=== PATIENT | male | born 1955 | race Caucasian/White ===

== ENCOUNTER 2018-12-07 10:16 | Outpatient (CLI) | payer OTHER ==
--- NOTE | 2018-12-07 10:47 | RAD ---
EXAM: XR Lumbar Spine 2 Or 3 View PROVIDED CLINICAL HISTORY: Low back pain COMPARISON: None available FINDINGS: There are 5 nonrib-bearing lumbar-type vertebral bodies. There is mild right convex scoliosis of the lumbar spine. Scattered degenerative changes are seen in the lumbar spine greatest at the lumbosacral junction. No vertebral body height loss is appreciated. No fracture or subluxation is seen. IMPRESSION: Mild scoliosis and degenerative changes in the lumbar spine. No fracture or subluxation is appreciate dNaomie
--- NOTE | 2018-12-07 10:51 | RAD ---
EXAM: XR Thoracic Spine 3 V STANDARD PROVIDED CLINICAL HISTORY: Back pain COMPARISON: None FINDINGS: Thoracic alignment appears normal. Thoracic vertebral body heights appear preserved. Pedicles appear intact. Thoracic disc degenerative changes are seen. IMPRESSION: Thoracic disc degenerative change.
== END 2018-12-07 10:17 | disposition home or self-care (01) ==
LOC: BICRAD 10:16
PROVIDERS: ATTEND Specialist
DX: M54.5 Low back pain (principal); M51.34 Other intervertebral disc degeneration, thoracic region; M47.816 Spondylosis without myelopathy or radiculopathy, lumbar region; M41.9 Scoliosis, unspecified
CPT/HCPCS: 72072; 72100

== ENCOUNTER 2018-12-23 12:50 | Outpatient (CLI) | payer OTHER ==
--- NOTE | 2018-12-23 15:23 | MRI ---
MRI OF THE THORACIC SPINE WITHOUT IV CONTRAST: INDICATION: History of radicular back pain. COMPARISON: Lumbar spinal radiographs dated 12/07/2018. FINDINGS: There is multilevel degenerative disk disease of the thoracic spine with loss of normal disk signal. There are benign-appearing hemangiomas within the T7, T9, and T12 vertebral levels. Additional smal ler hemangioma are seen within the thoracic spine. No acute fracture is demonstrated. At T1-T2, there is no appreciable central canal or neural foraminal narrowing. At T2-T3, there is mild right facet joint degenerative change, but no appreciable central canal or ne ural foraminal narrowing. At T3-4, there is a mild asymmetric to the right broad-based bulge, but no appreciable central canal or neural foraminal narrowing. At T4-5, there is a right paracentral protrusion, but no appreciable central canal or neural foramina l narrowing. At T5-6, there is a right paracentral protrusion, but no appreciable central canal or neural foramina l narrowing. At T6-T7, there is no appreciable central canal or neural foraminal narrowing. At T7-T8, there is no appreciable central canal or neural foraminal narrowing. At T8-T9, there is no appreciable central canal or neural foraminal narrowing. At T9-T10, there is no appreciable central canal or neural foraminal narrowing. At T10-T11, there is no appreciable central canal or neural foraminal narrowing. At T11-T12, there is no appreciable central canal or neural foraminal narrowing. At T12-L1, there is no appreciable central canal or neural foraminal narrowing. IMPRESSION: Multilevel spondylosis of the thoracic spine without appreciable central canal or neural foraminal na rrowing. POS: OFF
== END 2018-12-23 12:51 | disposition home or self-care (01) ==
LOC: SCSMRI 12:50
PROVIDERS: ATTEND Specialist
DX: M47.24 Other spondylosis with radiculopathy, thoracic region (principal)
CPT/HCPCS: 72146

== ENCOUNTER 2019-10-31 15:21 | Outpatient (CLI) | payer MEDICARE, OTHER ==
--- NOTE | 2019-10-31 15:41 | RAD ---
PA AND LATERAL VIEWS CHEST: 10/31/19 HISTORY: Smoke exposure. [employer]. No current chest complaints. COMPARISON: 05/01/14. The heart size is normal. The aorta is tortuous. The lungs are expanded without lobar consolidation, pneumothoraces, or pleural effusions. There are mild degenerative changes of the spine. IMPRESSION: No radiographic evidence of acute cardiopulmonary process. POS: TPC
== END 2019-10-31 15:22 | disposition home or self-care (01) ==
LOC: BICRAD 15:21
PROVIDERS: ATTEND Specialist
DX: T59.811S Toxic effect of smoke, accidental (unintentional), sequela (principal)
CPT/HCPCS: 71046

== ENCOUNTER 2019-11-09 08:05 | Outpatient (CLI) | payer MEDICARE, OTHER ==
--- NOTE | 2019-11-09 09:14 | ULT ---
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 Multiple shadowing gallstones are seen without gallbladder wall thickening or pericholecystic fluid. The common duct measures 5 mm in diameter. No free fluid is seen. IMPRESSION: Cholelithiasis..
== END 2019-11-09 08:06 | disposition home or self-care (01) ==
LOC: BICULT 08:05
PROVIDERS: ATTEND Specialist
DX: Z00.00 Encounter for general adult medical examination without abnormal findings (principal); K80.20 Calculus of gallbladder without cholecystitis without obstruction
CPT/HCPCS: 93975

== ENCOUNTER 2021-02-26 14:47 | Outpatient (CLI) | payer MEDICARE, OTHER | END 2021-02-26 14:48 | disposition home or self-care (01) | LOC: BICRAD 14:47 | PROVIDERS: ATTEND Specialist | DX: M25.511 Pain in right shoulder (principal) ==

== ENCOUNTER 2021-03-05 10:34 | Outpatient (CLI) | payer MEDICARE, OTHER | END 2021-03-05 10:35 | disposition home or self-care (01) | LOC: SCSMRI 10:34 | PROVIDERS: ATTEND Specialist | DX: M25.511 Pain in right shoulder (principal); S43.431A Superior glenoid labrum lesion of right shoulder, initial encounter; M19.011 Primary osteoarthritis, right shoulder ==

== ENCOUNTER 2023-09-29 13:33 | Day surgery (SDC) | payer MEDICARE, OTHER ==
[2023-09-29 15:44] VITALS: BP 122/72; TEMP 97.7
== END 2023-09-29 14:56 | disposition home or self-care (01) ==
LOC: ONC/OP 13:33
PROVIDERS: ATTEND Specialist
DX: E83.119 Hemochromatosis, unspecified (principal)
CPT/HCPCS: 99195; G0463; 99211

== ENCOUNTER 2023-11-10 13:13 | Day surgery (SDC) | payer MEDICARE, OTHER ==
[2023-11-10 14:26] VITALS: BP 104/66; TEMP 97.7
== END 2023-11-10 14:26 | disposition home or self-care (01) ==
LOC: ONC/OP 13:13
PROVIDERS: ATTEND Specialist
DX: E83.119 Hemochromatosis, unspecified (principal)
CPT/HCPCS: 99195

== ENCOUNTER 2024-02-02 13:03 | Day surgery (SDC) | payer MEDICARE, OTHER ==
[2024-02-02 13:15] VITALS: TEMP 98
[2024-02-02 14:23] VITALS: BP 119/84
== END 2024-02-02 14:00 | disposition home or self-care (01) ==
LOC: ONC/OP 13:03
PROVIDERS: ATTEND Specialist
DX: E83.119 Hemochromatosis, unspecified (principal)
CPT/HCPCS: 99195